=== PATIENT | female | born 1940 | race Caucasian/White ===

== ENCOUNTER → 2020-11-28 | Day surgery (SDC) | payer MEDICARE, OTHER ==
[~2020-11-28] MED LIST: AMIODARONE HCL200 M1 PO; AMIODARONE HCL200 MG PO; AZITHROMYCIN250 MG PO; BUMETANIDE1 MG PO; CEFDINIR300 MG PO; COUMADIN5 MG PO; COZAAR50 MG PO; DILTIAZEM ER120 M1 PO; DIOVAN160 MG PO; FEROSUL325 MG PO; FUROSEMIDE 20MG20 MG PO; KLOR-CON M 1010 MEQ PO; LACTINEX1 EACH PO; LASIX20 MG PO; LASIX40 MG PO; LOPRESSOR50 MG PO; NORVASC5 MG PO; POTASSIUM CHLO10 ME1 PO; STOOL SOFTENER1 EACH PO; SYNTHROID25 MCG PO; TYLENOL PO; VALSARTAN320 MG PO; [UNRECOGNIZED DRUG - OTHER] PO
== END | disposition home or self-care (01) ==
LOC: FAS 06:00
DX: M16.11 Unilateral primary osteoarthritis, right hip (principal); E03.9 Hypothyroidism, unspecified; I10 Essential (primary) hypertension; I48.91 Unspecified atrial fibrillation; Z20.822 Contact with and (suspected) exposure to COVID-19; Z95.0 Presence of cardiac pacemaker; Z79.01 Long term (current) use of anticoagulants
CPT/HCPCS: 76000; J1040; J2001; J2704; J7120; Q9967

== ENCOUNTER 2021-05-14 11:47 | Day surgery (SDCO) | payer MEDICARE, OTHER ==
[~2021-05-14] VITALS: Ht 170.2 cm; Wt 72.2 kg
[~2021-05-14 11:47] MED LIST changes: -AMIODARONE HCL200 MG PO; -BUMETANIDE1 MG PO; -DIOVAN160 MG PO; -LASIX20 MG PO; -LASIX40 MG PO; -POTASSIUM CHLO10 ME1 PO
[2021-05-14 12:41] LABS: BASOPHIL 0.6 % (0-2); EOSINOPHIL 0.2 % (0-7); HCT 38.6 % (37.0-47.0); HGB 13.2 g/dl (12.5-16.0); LYMPHOCYTE 16.4 % (15-48); MCH 32.4 pg (25.0-31.0); MCHC 34.2 g/dL (32.0-36.0); MCV 94.6 fL (78.0-100.0); MONOCYTE 7.7 % (0-12); MPV 9.5 fL (6.0-9.5); NEUTROPHIL 74.4 % (41-80); NRBC 0; PLT 340 K/uL (150-400); RBC 4.08 M/uL (4.20-5.40); RDW 13.2 % (11.5-14.0); WBC 10.7 K/uL (4.0-10.5)
[2021-05-14 12:44] LABS: INR 1.14 (0.9-1.2); PROTHROMBIN TIME 13.9 SECONDS (11.4-13.6)
[2021-05-14 12:53] LABS: ALBUMIN 3.5 g/dL (3.4-5.0); BILIRUBIN - TOTAL 1.2 mg/dL (0.2-1.0); BUN/CREAT RATIO (CALC) 23.3 RATIO; CREATININE 0.6 mg/dL (0.51-0.95); GLOBULIN (CALCULATION) 3.8 g/dL; POTASSIUM 4.2 mmol/L (3.5-5.1); TOTAL PROTEIN 7.3 g/dL (6.4-8.2)
[2021-05-14 12:59] LABS: PRO-BNP 11385 pg/mL (<450)
[2021-05-14] MEDS ORDERED: LASIX40 MG PO (17:19)
[2021-05-14] MEDS ORDERED: LASIX20 MG PO (17:22)
[2021-05-14] MEDS ORDERED: AMIODARONE HCL200 MG PO (17:22)
[2021-05-14] MEDS ORDERED: LOPRESSOR50 MG PO (17:23)
[2021-05-14] MEDS ORDERED: DIOVAN160 MG PO (17:24)
[2021-05-14 20:31] LABS: MAGNESIUM 1.9 mg/dL (1.8-2.4); PHOSPHORUS 2.8 mg/dL (2.6-4.7)
[2021-05-15 06:21] LABS: BASOPHIL 0.7 % (0-2); EOSINOPHIL 1.1 % (0-7); HCT 36.1 % (37.0-47.0); MCHC 33.2 g/dL (32.0-36.0); MCV 96.3 fL (78.0-100.0); MONOCYTE 13.5 % (0-12); MPV 9.3 fL (6.0-9.5); NRBC 0; PLT 295 K/uL (150-400); RBC 3.75 M/uL (4.20-5.40); RDW 13.3 % (11.5-14.0); WBC 8.1 K/uL (4.0-10.5)
[2021-05-15 07:10] LABS: ALBUMIN 3.1 g/dL (3.4-5.0); BILIRUBIN - TOTAL 0.9 mg/dL (0.2-1.0); BUN/CREAT RATIO (CALC) 17.1 RATIO; CREATININE 0.76 mg/dL (0.51-0.95); GLOBULIN (CALCULATION) 3.1 g/dL; POTASSIUM 4.2 mmol/L (3.5-5.1); TOTAL PROTEIN 6.2 g/dL (6.4-8.2)
[2021-05-15 07:15] LABS: CKMB 0.8 ng/mL (0.0-3.6)
--- NOTE | 2021-05-15 15:30 | NUR ---
05/15/21 Ms. Buchanan lives alone. She has a rw, rollator, cane and s. chair. She has 9 surviving children who are supportive. They assist with housekeeping and meals. Ms. Buchanan is moving next month into a modular home next to her son's. The home will be equiped with a ramp. No discharge planning needs are anticipated.
[2021-05-16 05:53] LABS: BASOPHIL 0.8 % (0-2); EOSINOPHIL 1.3 % (0-7); HCT 36.7 % (37.0-47.0); HGB 12.2 g/dl (12.5-16.0); LYMPHOCYTE 29.9 % (15-48); MCH 32.1 pg (25.0-31.0); MCHC 33.2 g/dL (32.0-36.0); MCV 96.6 fL (78.0-100.0); MONOCYTE 10.9 % (0-12); NEUTROPHIL 56.4 % (41-80); NRBC 0; PLT 316 K/uL (150-400); RDW 13.4 % (11.5-14.0); WBC 9.7 K/uL (4.0-10.5)
[2021-05-16 06:11] LABS: BUN/CREAT RATIO (CALC) 18.9 RATIO; CREATININE 0.74 mg/dL (0.51-0.95)
[2021-05-16] MEDS ORDERED: BUMETANIDE1 MG PO (10:10)
[2021-05-16] MEDS ORDERED: POTASSIUM CHLO10 ME1 PO (10:10)
--- NOTE | 2021-05-16 11:11 | NUR ---
DISCHARGE ORDERS RECEIVED. IV'DC'D. PT VERBALIZED UNDERSTANDING OF ALL DISCHARGE ORDERS. SCRIPTS GIVEN TO PT. COPY IN CHART. PT TO BE WHEELED DOWN IN WHEELCHAIR TO PT PICKUP.
== END 2021-05-16 11:20 | disposition home or self-care (01) ==
LOC: FER 11:47 → FTCU 14:20
PROVIDERS: Emergency Medicine; Nurse Practitioner; Nurse Practitioner Family; ADMIT Internal Medicine
DX: I11.0 Hypertensive heart disease with heart failure (principal); I50.23 Acute on chronic systolic (congestive) heart failure; K80.20 Calculus of gallbladder without cholecystitis without obstruction; E03.9 Hypothyroidism, unspecified; I48.0 Paroxysmal atrial fibrillation; I49.5 Sick sinus syndrome; D50.9 Iron deficiency anemia, unspecified; M19.90 Unspecified osteoarthritis, unspecified site; M81.0 Age-related osteoporosis without current pathological fracture; E78.5 Hyperlipidemia, unspecified; J90 Pleural effusion, not elsewhere classified; Z79.899 Other long term (current) drug therapy; Z95.0 Presence of cardiac pacemaker; Z20.822 Contact with and (suspected) exposure to COVID-19
CPT/HCPCS: 36415; 71045; 76705; 80048; 80053; 80061; 82553; 83735; 83880; 84100; 84443; 84484; 85025; 85610; 93005; 94010; G0378; J1650; J2405; U0002

== ENCOUNTER 2021-07-10 05:37 | Day surgery (SDCO) | payer MEDICARE, OTHER ==
[~2021-07-10] VITALS: Ht 170 cm; Wt 72.0 kg
[~2021-07-10 05:37] MED LIST changes: +AMIODARONE HCL200 MG PO; +ASPIRIN81 MG PO; +BUMETANIDE1 MG PO; +DIOVAN160 MG PO; +LASIX20 MG PO; +LASIX40 MG PO; +MELOXICAM15 MG PO; +POTASSIUM CHLO10 ME1 PO; +VIACTIV 650 MG1 EACH PO
[2021-07-10 06:40] LABS: HCT 35.4 % (37.0-47.0); HGB 11.5 g/dl (12.5-16.0); MCH 31.9 pg (25.0-31.0); MCHC 32.5 g/dL (32.0-36.0); MCV 98.1 fL (78.0-100.0); MPV 9.4 fL (6.0-9.5); RBC 3.61 M/uL (4.20-5.40); RDW 13.9 % (11.5-14.0); WBC 7.9 K/uL (4.0-10.5)
[2021-07-10] MEDS ORDERED: PERCOCET 5-3251 EACH PO (09:21)
--- NOTE | 2021-07-10 14:07 | NUR ---
MET [facility] PT. AND DAUGHTER. PT. REQUESTS [facility]. SHE HAS A RW. THE PLAN IS TO D/C HOME ON 07/11/2021. REFERRAL SENT TO [facility].
[2021-07-10 21:03] LABS: BASOPHIL 0.3 % (0-2); EOSINOPHIL 0.2 % (0-7); HCT 29.8 % (37.0-47.0); HGB 9.4 g/dl (12.5-16.0); LYMPHOCYTE 20.6 % (15-48); MCH 31.9 pg (25.0-31.0); MCHC 31.5 g/dL (32.0-36.0); MONOCYTE 9.2 % (0-12); NEUTROPHIL 69.3 % (41-80); NRBC 0; PLT 182 K/uL (150-400); RBC 2.95 M/uL (4.20-5.40); RDW 13.8 % (11.5-14.0); WBC 11.6 K/uL (4.0-10.5)
[2021-07-10 21:18] LABS: ALBUMIN 2.7 g/dL (3.4-5.0); BUN/CREAT RATIO (CALC) 29.2 RATIO; CREATININE 0.72 mg/dL (0.51-0.95); GLOBULIN (CALCULATION) 2.9 g/dL; MAGNESIUM 1.9 mg/dL (1.8-2.4); POTASSIUM 4.6 mmol/L (3.5-5.1); TOTAL PROTEIN 5.6 g/dL (6.4-8.2)
[2021-07-11 05:57] LABS: BASOPHIL 0.4 % (0-2); EOSINOPHIL 0.2 % (0-7); HGB 8.9 g/dl (12.5-16.0); MCH 31.7 pg (25.0-31.0); MCHC 31.8 g/dL (32.0-36.0); MCV 99.6 fL (78.0-100.0); MONOCYTE 11.7 % (0-12); MPV 9.5 fL (6.0-9.5); NEUTROPHIL 65.3 % (41-80); NRBC 0; PLT 212 K/uL (150-400); RBC 2.81 M/uL (4.20-5.40); RDW 13.6 % (11.5-14.0); WBC 9.3 K/uL (4.0-10.5)
[2021-07-11 06:15] LABS: BUN/CREAT RATIO (CALC) 27.4 RATIO; CREATININE 0.73 mg/dL (0.51-0.95); POTASSIUM 4.6 mmol/L (3.5-5.1)
[2021-07-11 08:47] LABS: BILIRUBIN NEGATIVE (NEGATIVE); BLOOD NEGATIVE Ery/uL (NEGATIVE); CLARITY CLEAR (CLEAR); COLOR YELLOW (YELLOW); GLUCOSE (U) NORMAL (NORMAL); LEUKOCYTES NEGATIVE Leu/uL (NEGATIVE); NITRITE NEGATIVE (NEGATIVE); PROTEIN TRACE (LOW) mg/dL (NEGATIVE); SPECIFIC GRAVITY 1.025 (1.001-1.030); UROBILINOGEN 0.2 mg/dL (0.2-1.0)
[2021-07-12 06:13] LABS: BASOPHIL 0.3 % (0-2); EOSINOPHIL 0.5 % (0-7); HCT 26.8 % (37.0-47.0); HGB 8.6 g/dl (12.5-16.0); LYMPHOCYTE 22.5 % (15-48); MCH 31.7 pg (25.0-31.0); MCHC 32.1 g/dL (32.0-36.0); MCV 98.9 fL (78.0-100.0); MONOCYTE 8.4 % (0-12); MPV 9.6 fL (6.0-9.5); NRBC 0; PLT 200 K/uL (150-400); RBC 2.71 M/uL (4.20-5.40); RDW 13.9 % (11.5-14.0); WBC 9.5 K/uL (4.0-10.5)
[2021-07-12] MEDS ORDERED: NORCO 5-325 TA1 EACH PO (08:53)
== END 2021-07-12 11:25 | disposition home health service (06) ==
LOC: FAS 05:37 → FMS 08:09 → FAS 08:30 → FMS 08:30 → EDSTATUS 08:30 → FAS 07-11 09:56 → FMS 07-11 09:56
PROVIDERS: Anesthesiology; Internal Medicine; Nurse Practitioner Adult Health; ADMIT Orthopaedic Surgery
DX: M16.11 Unilateral primary osteoarthritis, right hip (principal); I48.91 Unspecified atrial fibrillation; I50.9 Heart failure, unspecified; R33.9 Retention of urine, unspecified; I95.81 Postprocedural hypotension; Z98.51 Tubal ligation status; E03.9 Hypothyroidism, unspecified; E04.1 Nontoxic single thyroid nodule; I11.0 Hypertensive heart disease with heart failure; Z95.0 Presence of cardiac pacemaker; I49.5 Sick sinus syndrome
CPT/HCPCS: 36415; 73501; 76000; 80048; 80053; 81001; 83735; 84484; 85025; 86850; 86900; 86901; 94010; 97162; 97166; 97530-GP; 97535; C1776; G0378; J0171; J0697; J1885; J2250; J2270; J2405; J2704; J2710; J2795; J3010; J7120

== ENCOUNTER → 2022-02-21 | Day surgery (SDC) | payer MEDICARE, OTHER ==
[~2022-02-21] VITALS: Ht 170.2 cm; Wt 68.3 kg
[~2022-02-21] MED LIST changes: +NORCO 5-325 TA1 EACH PO; +PERCOCET 5-3251 EACH PO; +TRAMADOL HCL50 MG PO
[2022-02-21 10:53] LABS: HCT 39.9 % (37.0-47.0); HGB 12.8 g/dl (12.5-16.0); MCH 31.1 pg (25.0-31.0); MCHC 32.1 g/dL (32.0-36.0); MCV 97.1 fL (78.0-100.0); MPV 9.2 fL (6.0-9.5); RBC 4.11 M/uL (4.20-5.40); RDW 13.2 % (11.5-14.0); WBC 8.3 K/uL (4.0-10.5)
[2022-02-21 11:06] LABS: ALBUMIN 3.4 g/dL (3.4-5.0); BILIRUBIN - TOTAL 0.9 mg/dL (0.2-1.0); BUN/CREAT RATIO (CALC) 15.3 RATIO; CREATININE 0.72 mg/dL (0.51-0.95); GLOBULIN (CALCULATION) 3.5 g/dL; POTASSIUM 4.4 mmol/L (3.5-5.1); TOTAL PROTEIN 6.9 g/dL (6.4-8.2)
== END | disposition home or self-care (01) ==
LOC: FAS 09:43
PROVIDERS: Surgery
DX: N81.6 Rectocele (principal); N81.10 Cystocele, unspecified; K64.4 Residual hemorrhoidal skin tags; K57.30 Diverticulosis of large intestine without perforation or abscess without bleeding; K62.89 Other specified diseases of anus and rectum; I11.0 Hypertensive heart disease with heart failure; I50.9 Heart failure, unspecified; E03.9 Hypothyroidism, unspecified; Z95.0 Presence of cardiac pacemaker; Z79.82 Long term (current) use of aspirin; Z79.899 Other long term (current) drug therapy; Z90.710 Acquired absence of both cervix and uterus
CPT/HCPCS: 36415; 80053; 93005; J1610; J2250; J2704; J7120

== ENCOUNTER 2022-03-16 07:45 | Inpatient (IN) | payer MEDICARE, OTHER ==
[~2022-03-16] VITALS: Ht 170.2 cm; Wt 74.0 kg
[2022-03-16 08:17] LABS: BASOPHIL 0.3 % (0-2); EOSINOPHIL 0.1 % (0-7); HCT 38.5 % (37.0-47.0); HGB 12.5 g/dl (12.5-16.0); LYMPHOCYTE 6.7 % (15-48); MCH 31.3 pg (25.0-31.0); MCHC 32.5 g/dL (32.0-36.0); MCV 96.3 fL (78.0-100.0); MONOCYTE 3.3 % (0-12); MPV 9.2 fL (6.0-9.5); NEUTROPHIL 89.2 % (41-80); NRBC 0; PLT 310 K/uL (150-400); RDW 13.3 % (11.5-14.0); WBC 16.4 K/uL (4.0-10.5)
[2022-03-16 08:27] LABS: INR 1.28 (0.9-1.2); PROTHROMBIN TIME 15.3 SECONDS (11.8-13.4); PTT 26.5 SECONDS (24.4-34.7)
[2022-03-16 08:44] LABS: ALBUMIN 3.3 g/dL (3.4-5.0); BILIRUBIN - TOTAL 1.5 mg/dL (0.2-1.0); BUN/CREAT RATIO (CALC) 23.8 RATIO; CREATININE 0.84 mg/dL (0.51-0.95); FT4 (FREE T4) 1.5 ng/dL (0.76-1.46); MAGNESIUM 1.7 mg/dL (1.8-2.4); POTASSIUM 4.1 mmol/L (3.5-5.1); TOTAL PROTEIN 7.3 g/dL (6.4-8.2)
[2022-03-16 09:13] LABS: IRON % SATURATION 9.6 %SAT (20-50)
[2022-03-16 09:28] LABS: LACTIC ACID 4.1 mmol/L (0.4-1.9)
[2022-03-16 10:06] LABS: BILIRUBIN NEGATIVE (NEGATIVE); BLOOD TRACE-INTACT Ery/uL (NEGATIVE); CLARITY CLEAR (CLEAR); COLOR YELLOW (YELLOW); GLUCOSE (U) TRACE mg/dL (NORMAL); LEUKOCYTES NEGATIVE Leu/uL (NEGATIVE); NITRITE NEGATIVE (NEGATIVE); PROTEIN TRACE (LOW) mg/dL (NEGATIVE); pH 6.5 (5.0-9.0)
[2022-03-16 10:17] LABS: URINARY RBC RARE
[2022-03-16 10:18] LABS: BACTERIA TRACE; SQUAMOUS EPITHELIAL CELLS RARE
[2022-03-16] MEDS ORDERED: DIOVAN320 MG PO (10:36)
[2022-03-16] MEDS ORDERED: POTASSIUM CHLO20 ME2 PO ×2 (11:28→11:29)
[2022-03-17 06:17] LABS: BASOPHIL 0.1 % (0-2); EOSINOPHIL 0 % (0-7); HGB 11.1 g/dl (12.5-16.0); LYMPHOCYTE 8.8 % (15-48); MCH 31.3 pg (25.0-31.0); MCHC 32.6 g/dL (32.0-36.0); MCV 95.8 fL (78.0-100.0); MONOCYTE 5.8 % (0-12); MPV 9.6 fL (6.0-9.5); NEUTROPHIL 84.6 % (41-80); NRBC 0; PLT 223 K/uL (150-400); RBC 3.55 M/uL (4.20-5.40); RDW 13.4 % (11.5-14.0); WBC 17.8 K/uL (4.0-10.5)
[2022-03-17 06:37] LABS: BUN/CREAT RATIO (CALC) 28.8 RATIO; CREATININE 0.73 mg/dL (0.51-0.95); PHOSPHORUS 2.8 mg/dL (2.6-4.7); POTASSIUM 3.8 mmol/L (3.5-5.1)
[2022-03-18 06:57] LABS: BASOPHIL 0.1 % (0-2); EOSINOPHIL 0.1 % (0-7); HCT 34.3 % (37.0-47.0); LYMPHOCYTE 11.1 % (15-48); MCH 31.3 pg (25.0-31.0); MCHC 32.1 g/dL (32.0-36.0); MCV 97.4 fL (78.0-100.0); MONOCYTE 6.3 % (0-12); MPV 9.7 fL (6.0-9.5); NEUTROPHIL 81.3 % (41-80); NRBC 0; PLT 237 K/uL (150-400); RBC 3.52 M/uL (4.20-5.40); RDW 13.8 % (11.5-14.0); WBC 18.1 K/uL (4.0-10.5)
[2022-03-18 08:02] LABS: BUN/CREAT RATIO (CALC) 26.3 RATIO; CREATININE 0.76 mg/dL (0.51-0.95); FOLIC ACID (SERUM) 7.4 ng/mL (8.6-58.9); MAGNESIUM 2.2 mg/dL (1.8-2.4); PHOSPHORUS 2.2 mg/dL (2.6-4.7)
--- NOTE | 2022-03-18 11:50 | NUR ---
Pt triggered for nutrition screen d/t MST 3; patient denies change of weight or anorexia in MD history/physical. review of patient's most recent hospitalizations with consistent wt without wt loss. Patient on regular diet with ONS 3x day; intake at present >50% avg. 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 will follow POC for additional nutritional risks.
--- NOTE | 2022-03-18 20:45 | NUR ---
JIANG CATHETER REMOVED. 300 OF RED URINE IN BAG. PATIENT TOLERATED WELL.
--- NOTE | 2022-03-19 04:27 | NUR ---
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
[2022-03-19 06:07] LABS: BASOPHIL 0.2 % (0-2); EOSINOPHIL 0.2 % (0-7); HCT 32.4 % (37.0-47.0); HGB 10.5 g/dl (12.5-16.0); MCH 31.5 pg (25.0-31.0); MCHC 32.4 g/dL (32.0-36.0); MCV 97.3 fL (78.0-100.0); MONOCYTE 7.5 % (0-12); MPV 9.5 fL (6.0-9.5); NRBC 0; PLT 253 K/uL (150-400); RBC 3.33 M/uL (4.20-5.40); RDW 13.6 % (11.5-14.0); WBC 17.7 K/uL (4.0-10.5)
[2022-03-19 06:56] LABS: ALBUMIN 2.1 g/dL (3.4-5.0); ALKALINE PHOSHATASE 58 U/L (46-116); ALT 7 U/L (14-59); AST 12 U/L (15-37); BILIRUBIN - TOTAL 1.7 mg/dL (0.2-1.0); BUN 14 mg/dL (7-18); BUN/CREAT RATIO (CALC) 19.4 RATIO; CHLORIDE 99 mmol/L (98-107); CO2 (BICARBONATE) 24 mmol/L (21-32); CREATININE 0.72 mg/dL (0.51-0.95); GLOBULIN (CALCULATION) 3.7 g/dL; GLUCOSE 95 mg/dL (74-106); POTASSIUM 4.2 mmol/L (3.5-5.1); TOTAL PROTEIN 5.8 g/dL (6.4-8.2)
[2022-03-19 06:57] LABS: C-REACTIVE PROTEIN > 18.00 mg/dL (<=0.90)
[2022-03-19 11:53] LABS: IRON % SATURATION 9.4 %SAT (20-50)
[2022-03-20 06:33] LABS: BASOPHIL 0.3 % (0-2); EOSINOPHIL 0.6 % (0-7); HCT 33.2 % (37.0-47.0); HGB 10.8 g/dl (12.5-16.0); LYMPHOCYTE 12.1 % (15-48); MCH 31.6 pg (25.0-31.0); MCHC 32.5 g/dL (32.0-36.0); MCV 97.1 fL (78.0-100.0); MONOCYTE 9.6 % (0-12); MPV 9.4 fL (6.0-9.5); NEUTROPHIL 76.2 % (41-80); NRBC 0; PLT 276 K/uL (150-400); RBC 3.42 M/uL (4.20-5.40); RDW 13.4 % (11.5-14.0); WBC 16.3 K/uL (4.0-10.5)
[2022-03-20 06:52] LABS: ALBUMIN 2.1 g/dL (3.4-5.0); ALKALINE PHOSHATASE 65 U/L (46-116); ALT <6 U/L (14-59); AST 15 U/L (15-37); BILIRUBIN - TOTAL 1.5 mg/dL (0.2-1.0); BUN 12 mg/dL (7-18); BUN/CREAT RATIO (CALC) 18.5 RATIO; CHLORIDE 97 mmol/L (98-107); CO2 (BICARBONATE) 26 mmol/L (21-32); CREATININE 0.65 mg/dL (0.51-0.95); GLUCOSE 94 mg/dL (74-106); POTASSIUM 4.1 mmol/L (3.5-5.1); TOTAL PROTEIN 6.1 g/dL (6.4-8.2)
[2022-03-21 05:36] LABS: BASOPHIL 0.4 % (0-2); EOSINOPHIL 1.8 % (0-7); HGB 10.8 g/dl (12.5-16.0); LYMPHOCYTE 15.8 % (15-48); MCH 31.3 pg (25.0-31.0); MCHC 32.7 g/dL (32.0-36.0); MCV 95.7 fL (78.0-100.0); MONOCYTE 11.3 % (0-12); MPV 9.4 fL (6.0-9.5); NEUTROPHIL 68.2 % (41-80); NRBC 0; PLT 285 K/uL (150-400); RBC 3.45 M/uL (4.20-5.40); RDW 13.3 % (11.5-14.0); WBC 10.2 K/uL (4.0-10.5)
[2022-03-21 06:04] LABS: ALKALINE PHOSHATASE 66 U/L (46-116); ALT <6 U/L (14-59); AST 11 U/L (15-37); BUN 12 mg/dL (7-18); CHLORIDE 98 mmol/L (98-107); CO2 (BICARBONATE) 27 mmol/L (21-32); GLOBULIN (CALCULATION) 3.8 g/dL; GLUCOSE 101 mg/dL (74-106); POTASSIUM 3.6 mmol/L (3.5-5.1); TOTAL PROTEIN 5.8 g/dL (6.4-8.2)
[2022-03-21] MEDS ORDERED: AUGMENTIN 500-1 EACH PO (08:58)
[2022-03-21] MEDS ORDERED: FLORANEX TABLE1 EACH PO (08:58)
[2022-03-21] MEDS ORDERED: FOLIC ACID1 MG PO (08:58)
--- NOTE | 2022-03-21 11:32 | NUR ---
PER [facility] PT NEEDS HOME O2 SENT WALK TEST AND FACESHEET AND PRGRESS NOTES TO [facility] AT [phone]; PER [facility] PATIENT ALSO WANTS TO HAVE HOME HEALTH [facility]; [facility] WILL GET CHOICE FORM SIGNED I REACHED OUT TO YOLIE OLIVAREZ SHE SAID SHE IS IN MEETING AND NEEDS ME TO SCAN AND FAX TO HER THE [employer]; SPOKE TO YOLIE OLIVAREZ SHE IS GOOD TO GO I NOTIFED [facility] SHE WILL BE GOING HOME TODAY
--- NOTE | 2022-03-21 12:50 | NUR ---
DISCHARGED VIA WHEELCHAIR. VERBALIZED UNDERSTANDING OF DISCHARGE INSTRUCTIONS. IV AND MONITOR DCD. ALL QUESTIONS ANSWERED.
== END 2022-03-21 12:19 | disposition home or self-care (01) | DRG 871 ==
LOC: FER 07:45 → FICU 09:09 → FTCU 17:01
PROVIDERS: Emergency Medicine; Family Medicine; ADMIT Internal Medicine
DX: A41.9 Sepsis, unspecified organism (principal); J96.01 Acute respiratory failure with hypoxia; J69.0 Pneumonitis due to inhalation of food and vomit; J18.9 Pneumonia, unspecified organism; I50.32 Chronic diastolic (congestive) heart failure; I13.0 Hypertensive heart and chronic kidney disease with heart failure and stage 1 through stage 4 chronic kidney disease, or unspecified chronic kidney disease; J91.8 Pleural effusion in other conditions classified elsewhere; N17.9 Acute kidney failure, unspecified; Z20.822 Contact with and (suspected) exposure to COVID-19; R65.20 Severe sepsis without septic shock; I48.0 Paroxysmal atrial fibrillation; N18.2 Chronic kidney disease, stage 2 (mild); K80.20 Calculus of gallbladder without cholecystitis without obstruction; E80.7 Disorder of bilirubin metabolism, unspecified; D50.9 Iron deficiency anemia, unspecified; F32.A Depression, unspecified; G62.9 Polyneuropathy, unspecified; M81.0 Age-related osteoporosis without current pathological fracture; E78.5 Hyperlipidemia, unspecified; Z95.0 Presence of cardiac pacemaker; Z87.440 Personal history of urinary (tract) infections; Z86.010 Personal history of colon polyps; Z79.899 Other long term (current) drug therapy; Z90.710 Acquired absence of both cervix and uterus; Z98.41 Cataract extraction status, right eye; Z98.42 Cataract extraction status, left eye
CPT/HCPCS: 36415; 36600; 71045; 76705; 80048; 80053; 80076; 81001; 82607; 82746; 82803; 83540; 83550; 83605; 83690; 83735; 83880; 84100; 84145; 84439; 84443; 84484; 85025; 85610; 85730; 86140; 87040; 87088; 93005; 94010; 94660; 96365; 96368; 96375; J0456; J0696; J1100; J1650; J2405; J2543; J3475; J7040; J7050; U0002